=== PATIENT | female | born 1990 | race American Indian/Alaskan Native ===

== ENCOUNTER 2021-03-25 13:49 | Emergency (ER) | payer SELFPAY ==
--- NOTE | 2021-03-25 14:10 | Event Note ---
ED Screening Note Date of service: 03/25/21 Time: 14:09 ED Screening Note: 30-year-old female patient with history of tobacco use in remission presents emergency department with complaints of left-sided chest pain with associated upper extremity paresthesias and nausea starting yesterday. Patient describes the pain as "somewhere between sharp and dull," intermittent, no exacerbating or relieving factors identified. No history of similar symptoms. No family history of early heart disease. General: Awake, appropriately interactive. Appears anxious. Neck: Supple. Full range of motion intact. Cardiovascular: Normal peripheral perfusion. Pulmonary: No respiratory distress. Patient is speaking normally without use of accessory muscles. Skin: No apparent rashes or lesions. Neurological: No facial asymmetry. Speech is clear. Follows commands. Patient is alert and oriented. Musculoskeletal: Moves all four extremities spontaneously with normal range of motion. Psych: Cooperative. Appears anxious. I have greeted and performed a focused rapid initial assessment of this patient. A comprehensive ED assessment and evaluation of the patient, analysis of all test results, and completion of the medical decision-making process will be conducted by additional ED providers. This initial assessment/diagnostic orders/clinical plan/treatment(s) is/are subject to change based on patients health status, clinical progression and re-assessment. Further treatment and workup at subsequent clinical provider's discretion. Patient/guardian urged not to elope from the ED as their condition may be serious if not clinically assessed and managed.
[2021-03-25 15:19] LABS: Basophils % (Auto) 0.3 % (0.0-1.8); Eosinophils # (Auto) 0.1 K/mm3 (0.0-0.4); Eosinophils % (Auto) 0.8 % (0.0-4.3); Hematocrit 37.1 % (30.3-42.9); Hemoglobin 13.2 gm/dl (10.1-14.3); Lymphocytes # (Auto) 1.6 K/mm3 (1.2-5.4); Lymphocytes % (Auto) 21.8 % (13.4-35.0); Mean Corpuscular HGB Conc 35 % (30-34); Mean Corpuscular Volume 93 fl (79-97); Monocytes # (Auto) 0.6 K/mm3 (0.0-0.8); Monocytes % (Auto) 7.8 % (0.0-7.3); Platelet Count 260 K/mm3 (140-440)
[2021-03-25 15:46] LABS: Alanine Aminotransferase 5 units/L (7-56); Albumin 4.7 g/dL (3.9-5); BUN/Creatinine Ratio 7; Blood Urea Nitrogen 8 mg/dL (7-17); Calcium 9.2 mg/dL (8.4-10.2); Hemolysis Index 3
--- NOTE | 2021-03-25 16:41 | XRay Report ---
CHEST 2 VIEWS INDICATION / CLINICAL INFORMATION: chest pain. COMPARISON: None available. FINDINGS: SUPPORT DEVICES: None. HEART / MEDIASTINUM: No significant abnormality. LUNGS / PLEURA: No significant pulmonary or pleural abnormality. No pneumothorax. ADDITIONAL FINDINGS: No significant additional findings. IMPRESSION: 1. No acute findings. Signer Name: Joby Peck MD Signed: 03/25/2021 4:37 PM Workstation Name: [id number]
--- NOTE | 2021-03-25 17:02 | Emergency Department Report ---
ED Chest Pain HPI - General Chief Complaint: Chest Pain Stated Complaint: CHEST PAIN Time Seen by Provider: 03/25/21 16:02 Source: patient Mode of arrival: Ambulatory Limitations: No Limitations - History of Present Illness Initial Comments: Patient is a 30-year-old female presents emergency room complaints of left-sided chest pain that began yesterday. She states it feels like occasional sharp pain. She states it is worse with movement. Patient states that she works at [employer] and does heavy lifting. She denies any fall or injury. States that she does have an occasional dry cough but denies any persistent cough or productive cough. She denies any fever, vomiting, diarrhea, diaphoresis, shortness of breath, pleuritic chest pain, abdominal pain, urinary symptoms. No past medical history. No allergies medications. Last menstrual cycle 03/03/2021. She is a former smoker and quit a month ago. She denies any family cardiac history or family history of DVT/PE. She denies any recent travel. She denies any sick contacts. She denies any recent surgery or hormone use. Severity scale (0 -10): 5 - Related Data Previous Rx's Medication Instructions Recorded Last Taken Type Naproxen [EC-Naprosyn] 375 mg PO BID PRN #14 tablet. 03/25/21 Unknown Rx Allergies Allergy/AdvReac Type Severity Reaction Status Date / Time No Known Allergies Allergy Unverified 03/25/21 13:59 Heart Score - HEART Score History: Slightly suspicious EKG: Normal Age: < 45 Risk factors: 1-2 risk factors Troponin: < normal limit HEART Score: 1 - EKG Read Time Time EKG Completed: 13:55 EKG Read Time: 13:59 ED Review of Systems ROS: Stated complaint: CHEST PAIN Other details as noted in HPI Comment: All other systems reviewed and negative ED Past Medical Hx - Past Medical History Previous Medical History?: No - Surgical History Past Surgical History?: No - Social History Smoking Status: Never Smoker - Medications Home Medications: Home Medications Medication Instructions Recorded Confirmed Last Taken Type Naproxen [EC-Naprosyn] 375 mg PO BID PRN #14 tablet. 03/25/21 Unknown Rx ED Physical Exam - General Limitations: No Limitations General appearance: alert, in no apparent distress - Head Head exam: Present: atraumatic, normocephalic - Eye Eye exam: Present: normal appearance - ENT ENT exam: Present: mucous membranes moist - Respiratory Respiratory exam: Present: normal lung sounds bilaterally, chest wall tenderness (ttp to the left anterior chest wall, no crepitus, no deformity, no skin changes ). Absent: respiratory distress, wheezes, rales, rhonchi, stridor, accessory muscle use, decreased breath sounds, prolonged expiratory - Cardiovascular Cardiovascular Exam: Present: regular rate, normal rhythm, normal heart sounds. Absent: systolic murmur, diastolic murmur, rubs, gallop - Neurological Exam Neurological exam: Present: alert, oriented X3 - Psychiatric Psychiatric exam: Present: normal affect, normal mood - Skin Skin exam: Present: warm, dry, intact ED Course Vital Signs 03/25/21 03/25/21 14:01 17:26 Temperature 98.8 F Pulse Rate 98 H 88 Respiratory 17 18 Rate Blood Pressure 112/78 Blood Pressure 152/74 [Right] O2 Sat by Pulse 100 100 Oximetry JOSE score - Jose Score Age > 65: (0) No Aspirin use within the Past 7 Days: (0) No 3 or more CAD Risk Factors: (0) No 2 or more Angina events in past 24 hrs: (0) No Known CAD with more than 50% Stenosis: (0) No Elevated Cardiac Markers: (0) No ST Deviation Greater than 0.5mm: (0) No JOSE Score: 0 ED Medical Decision Making - Lab Data Result diagrams: 03/25/21 14:56 03/25/21 14:56 Lab Results 03/25/21 03/25/21 03/25/21 Range/Units 14:56 14:56 14:56 WBC 7.1 (4.5-11.0) K/mm3 RBC 4.00 (3.65-5.03) M/mm3 Hgb 13.2 (10.1-14.3) gm/dl Hct 37.1 (30.3-42.9) % MCV 93 (79-97) fl MCH 33 H (28-32) pg MCHC 35 H (30-34) % RDW 14.0 (13.2-15.2) % Plt Count 260 (140-440) K/mm3 Lymph % (Auto) 21.8 (13.4-35.0) % [place] % (Auto) 7.8 H (0.0-7.3) % Eos % (Auto) 0.8 (0.0-4.3) % Baso % (Auto) 0.3 (0.0-1.8) % Lymph # (Auto) 1.6 (1.2-5.4) K/mm3 [place] # (Auto) 0.6 (0.0-0.8) K/mm3 Eos # (Auto) 0.1 (0.0-0.4) K/mm3 Baso # (Auto) 0.0 (0.0-0.1) K/mm3 Seg Neutrophils % 69.3 (40.0-70.0) % Seg Neutrophils # 4.9 (1.8-7.7) K/mm3 Sodium 138 (137-145) mmol/L Potassium 3.5 L (3.6-5.0) mmol/L Chloride 101.5 (98-107) mmol/L Carbon Dioxide 25 (22-30) mmol/L Anion Gap 15 mmol/L BUN 8 (7-17) mg/dL Creatinine 1.1 (0.6-1.2) mg/dL Estimated GFR 59 ml/min BUN/Creatinine Ratio 7 % Glucose 91 (65-100) mg/dL Calcium 9.2 (8.4-10.2) mg/dL Magnesium 1.90 (1.7-2.3) mg/dL Total Bilirubin 0.50 (0.1-1.2) mg/dL AST 16 (5-40) units/L ALT 5 L (7-56) units/L Alkaline Phosphatase 52 (35-129) units/L Troponin T < 0.010 (0.00-0.029) ng/mL Total Protein 8.0 (6.3-8.2) g/dL Albumin 4.7 (3.9-5) g/dL Albumin/Globulin Ratio 1.4 % HCG, Qual Negative (Negative) Vital Signs 03/25/21 03/25/21 14:01 17:26 Temperature 98.8 F Pulse Rate 98 H 88 Respiratory 17 18 Rate Blood Pressure 112/78 Blood Pressure 152/74 [Right] O2 Sat by Pulse 100 100 Oximetry - EKG Data EKG shows normal: sinus rhythm, axis, intervals, QRS complexes, ST-T waves Rate: tachycardia (104 bpm) - Radiology Data Radiology results: report reviewed Ordering Physician: ALINE HALL Date of Service: 03/25/21 Procedure(s): XR chest routine 2V Accession Number(s): [id number] cc: ALINE HALL Fluoro Time In Minutes: CHEST 2 VIEWS INDICATION / CLINICAL INFORMATION: chest pain. COMPARISON: None available. FINDINGS: SUPPORT DEVICES: None. HEART / MEDIASTINUM: No significant abnormality. LUNGS / PLEURA: No significant pulmonary or pleural abnormality. No pneumothorax. ADDITIONAL FINDINGS: No significant additional findings. IMPRESSION: 1. No acute findings. Signer Name: Joby Peck MD Signed: 03/25/2021 4:37 PM Workstation Name: [email or web address] Transcribed By: TL Dictated By: Joby Peck MD Electronically Authenticated By: Joby Peck MD Signed Date/Time: 03/25/211636 DD/ 36 TD/TT: - Medical Decision Making Patient is a 30-year-old female presents emergency room complaints of left-sided chest pain that began yesterday. She states it feels like occasional sharp pain. She states it is worse with movement. Patient states that she works at [employer] and does heavy lifting. She denies any fall or injury. States that she does have an occasional dry cough but denies any persistent cough or productive cough. She denies any fever, vomiting, diarrhea, diaphoresis, shortness of breath, pleuritic chest pain, abdominal pain, urinary symptoms. No past medical history. No allergies medications. Last menstrual cycle 03/03/2021. She is a former smoker and quit a month ago. She denies any family cardiac history or family history of DVT/PE. She denies any recent travel. She denies any sick contacts. She denies any recent surgery or hormone use. Vitals are stable. EKG with mild sinus tachycardia at 104, otherwise normal. Chest x-ray with no acute process. Labs are stable. Troponin is negative. on exam:ttp to the left anterior chest wall, no crepitus, no deformity, no skin changes. Heart score is 1, JOSE score is 0, very low risk for cardiac event. Patient's pain is reproducible and she does heavy lifting at her job, symptoms and examination most likely consistent with costochondritis. Patient is PERC criteria negative for PE, PE very unlikely. Discussed all results with patient answer questions. Advised patient Please take medication as prescribed as needed. May use ice 15 minutes at a time, rest, heating pad for 15 minutes at a time. Follow-up with your primary care doctor. Follow-up with a supervisor coin machine. Return to emergency room for any new or worsening symptoms. Critical care attestation.: If time is entered above; I have spent that time in minutes in the direct care of this critically ill patient, excluding procedure time. ED Disposition Clinical Impression: Chest pain Qualifiers: Chest pain type: unspecified Qualified Code(s): R07.9 - Chest pain, unspecified Disposition: TO HOME OR SELFCARE Is pt being admited?: No Does the pt Need Aspirin: No Condition: Stable Instructions: Costochondritis Additional Instructions: Please take medication as prescribed as needed. May use ice 15 minutes at a time, rest, heating pad for 15 minutes at a time. Follow-up with your primary care doctor. Follow-up with a supervisor coin machine. Return to emergency room for any new or worsening symptoms. Prescriptions: Naproxen [EC-Naprosyn] 375 mg PO BID PRN #14 tablet.dr DAI Reason: pain Referrals: LISA PETER MD [Staff Physician] - 3-5 Days [facility] [Provider Group] - 3-5 Days ANN HERNANDEZ MD [Staff Physician] - 3-5 Days Time of Disposition: 17:00 Print Language: CITIZEN OF [place]
[2021-03-25 17:28] VITALS: BP 112/78
--- NOTE | 2021-03-27 09:55 | Electrocardiograph Report ---
[facility] Test Date: 2021-03-25 Test Time: 13:55:41 Pat Name: CHARANJIT CHAN Department: Room: Gender: F Alterations Tailor: YANI YUB: 1990 Requested By: KEELEY BLAKE Order Number: [id number] Reading MD: Ayan Amanda Measurements Intervals [place] Rate: 104 P: 69 MS: 147 QRS: 17 QRSD: 81 T: 18 QT: 308 QTc: 406 Interpretive Statements Sinus tachycardia No previous ECG available for comparison Electronically Signed On 03-27-2021 9:54:49 EDT by Ayan Amanda
== END 2021-03-25 17:28 | disposition home or self-care (01) ==
LOC: ED 13:49
DX: R07.89 Other chest pain (principal)
CPT/HCPCS: 36415; 71046; 80053; 83735; 84484; 84703; 85025; 93005; 99283